=== PATIENT | female | born 1950 | race Caucasian/White ===

== ENCOUNTER → 2017-02-27 | Outpatient (CLI) | payer MEDICARE, MEDICAID ==
[~2017-02-27] MED LIST: LORA2TAB89 PO; TRAM50TA PO; ZOLP5TAB PO
--- NOTE | 2017-02-27 14:48 | RAD ---
EXAM: PET/CT SKULL BASE TO MID THIGH. HISTORY: Restaging breast carcinoma. COMPARISON: None None. TECHNIQUE: CT was performed from the skull base through the mid thighs for the purposes of attenuation correction. 13.6 mCi F-18 fluorodeoxyglucose (FDG) was administered intravenously. After an uptake period, positron emission tomography was performed from the skull base through the mid thighs. The PET and CT data were fused and interpreted in combination a dedicated workstation. Blood glucose level was 121 mg/dL at the time of FDG administration. FINDINGS: Head and neck: No suspicious hypermetabolic mass or lymphadenopathy. Chest: No suspicious hypermetabolic mass or lymphadenopathy. Abdomen and pelvis: FDG uptake in both kidneys and excretion into the renal collecting system. No suspicious hypermetabolic mass or lymphadenopathy. Musculoskeletal: There is asymmetric FDG uptake in the right scalene musculature without associated soft tissue mass, likely physiologic. No suspicious hypermetabolic activity. Uncorrected PET images: Uncorrected PET images demonstrate no significant finding. Additional CT findings: Prior right mastectomy and right axillary lymph node dissection. Coronary artery calcifications. There is subpleural scarring in the anterior right lung, likely from prior radiation therapy. Abdominal aorta is normal in caliber with mild calcified atheromatous disease. There is a mild inferior left maxillary and medial right maxillary polypoid sinus mucosal thickening. Impression: Prior right mastectomy and right axillary lymph node dissection with no hypermetabolic local recurrence or metastatic disease.
== END | disposition home or self-care (01) ==
LOC: PETSC 09:06
PROVIDERS: ATTEND Family Medicine
DX: C50.911 Malignant neoplasm of unspecified site of right female breast (principal); C50.912 Malignant neoplasm of unspecified site of left female breast; I25.10 Atherosclerotic heart disease of native coronary artery without angina pectoris; J98.4 Other disorders of lung; Z90.11 Acquired absence of right breast and nipple
CPT/HCPCS: 78815; A9552